=== PATIENT | female | born 1985 ===

== ENCOUNTER 2019-01-24 19:59 | Emergency (ER) | payer MEDICAID, OTHER, SELFPAY ==
[~2019-01-24] VITALS: Ht 157.5 cm; Wt 126.4 kg
--- NOTE | 2019-01-24 20:19 | NUR ---
THIS IS A 33Y F THAT COMES IN W/ C/O WORSENING FLU SYMPTOMS. PT SAW PRIMARY CARE YESTERDAY DX W/ FLU GOT TAMIFLU AND STATES SHE HAS NOT STARTED FEELING BETTER. PT REPORTS SOB SINCE YESTERDAY AND FEVER YESTERDAY. PT CONNECTED TO ALL MONITORING VSS CALL LIGHT IN REACH
--- NOTE | 2019-01-24 20:19 | NUR ---
MD AT BEDSIDE TO ASSESS PT
[2019-01-24] MEDS ORDERED: ALBUTEROL/IPRATROPIUM 2.5MG/0.5MG, 3 ML ONE (20:28)
[2019-01-24] MEDS ORDERED: PLEASE ENTER ALLERGIES MC SCH (20:30)
[2019-01-24] MEDS ORDERED: ALBUTEROL/IPRATROPIUM 2.5MG/0.5MG, 3 ML NPPB ONE (20:30)
--- NOTE | 2019-01-24 20:33 | NUR ---
PT BACK FROM XRAY. RT AT BEDSIDE FOR BREATHING TX
--- NOTE | 2019-01-24 20:40 | NUR ---
PT MEDICATED PER MAR.
[2019-01-24 20:41] VITALS: BP 113/66
== END 2019-01-24 21:07 | disposition home or self-care (01) ==
LOC: ED 20:45
DX: J11.1 Influenza due to unidentified influenza virus with other respiratory manifestations (principal); J98.01 Acute bronchospasm; R50.81 Fever presenting with conditions classified elsewhere
CPT/HCPCS: 71046; 94640; 99283; J7512; J7620